=== PATIENT | male | born 1960 | race Caucasian/White ===

== ENCOUNTER 2023-07-09 09:30 | Observation (INO) ==
--- NOTE | 2023-06-18 10:51 | PAT Medication Instructions ---
Medication Instructions Date of Service June 18, 2023 Home Medications amlodipine 10 mg tablet 10 mg PO HS escitalopram oxalate 20 mg tablet (Lexapro) 20 mg PO HS fenofibrate nanocrystallized 48 mg tablet 48 mg PO HS irbesartan 300 mg tablet 300 mg PO HS isosorbide dinitrate 30 mg tablet 30 mg PO HS metoprolol succinate 100 mg tablet,extended release 24 hr 100 mg PO HS oxycodone-acetaminophen 5 mg-325 mg tablet 1 tab PO Q6H PRN Pain pantoprazole 40 mg tablet,delayed release 40 mg PO HS rivaroxaban 20 mg tablet (Xarelto) 20 mg PO HS ASK your prescriber and surgeon rivaroxaban 20 mg tablet (Xarelto) 20 mg PO HS STOP taking 48 hours before surgery fenofibrate nanocrystallized 48 mg tablet 48 mg PO HS Take morning of surgery With a small sip of water, OTHERWISE NOTHING TO EAT OR DRINK AFTER MIDNIGHT: oxycodone-acetaminophen 5 mg-325 mg tablet 1 tab PO Q6H PRN Pain (if needed) Take evening before surgery amlodipine 10 mg tablet 10 mg PO HS escitalopram oxalate 20 mg tablet (Lexapro) 20 mg PO HS irbesartan 300 mg tablet 300 mg PO HS isosorbide dinitrate 30 mg tablet 30 mg PO HS metoprolol succinate 100 mg tablet,extended release 24 hr 100 mg PO HS oxycodone-acetaminophen 5 mg-325 mg tablet 1 tab PO Q6H PRN Pain (if needed) pantoprazole 40 mg tablet,delayed release 40 mg PO HS Other Notes If you have any questions please call us at [phone] or [phone] or [phone] or [phone]
--- NOTE | 2023-06-23 14:17 | Anesthesiology Consultation ---
Date of Service June 23, 2023 Assessment & Plan (1) Encounter for pre-operative examination: - Infectious disease screening: Per assessment on 06/23: No known infectious disease contacts or current infectious disease symptoms. No noted Covid positive test result in past 90 days. - Cardiology visit (10/17/22): "Previous PCI in 2012. Treadmill stress test in 2019normal. No additional testing is necessary at this time. Preserved LV function by echocardiogram. Continue aggressive risk factor modification.. Atrial fibrillation.. Status post cryoablation. [id number] Score is 2, continue Xarelto for anticoagulation. Sinus rhythm based on exam. No recent palpitations.. Manual recheck of his blood pressure revealed a BP of 150/100. Discontinue lisinopril. Start irbesartan 300 mg daily." BP f/u recommended. Per PCP visit 03/2023, BP 108/76* - Xarelto instructions: per surgeon/prescriber - Elevated PTT: PTT 36.5 on preop labs. Patient taking Xarelto (he has not received perioperative instructions yet from surgeon/prescriber- he will followup). At anesthesiologist discretion DOS if recheck PTT level needed from their perspective. Chart Review Chart Review: Acceptable Risk for Surgery and Patient seen in Pre Admission Testing Teaching & Discussion Pre-Anesthesia Teaching/Discussion Notes: Instructed NPO after midnight before surgery,except medications with 15 cc of water. Medication instructions provided according to the PAT guidelines. History Surgery Operation Date: 07/09/23 11:35 Proposed Procedures p L2-L3 Microdiscectomy - Zheng Benjamin MD Height/Weight Height: 5 ft 11 in Weight: 101.4 kg Allergies Allergy/AdvReac Type Severity Reaction Status Date / Time No Known Allergies Allergy Verified 06/16/23 11:19 Medications Home Medications Medication Instructions Recorded Confirmed Last Taken amlodipine 10 mg tablet 10 mg PO HS 06/16/23 06/16/23 Unknown escitalopram oxalate 20 mg tablet 20 mg PO HS 06/16/23 06/16/23 Unknown (Lexapro) fenofibrate nanocrystallized 48 mg 48 mg PO HS 06/16/23 06/16/23 Unknown tablet irbesartan 300 mg tablet 300 mg PO HS 06/16/23 06/16/23 Unknown isosorbide dinitrate 30 mg tablet 30 mg PO HS 06/16/23 06/16/23 Unknown metoprolol succinate 100 mg 100 mg PO HS 06/16/23 06/16/23 Unknown tablet,extended release 24 hr oxycodone-acetaminophen 5 mg-325 1 tab PO Q6H PRN Pain 06/16/23 06/16/23 Unknown mg tablet pantoprazole 40 mg tablet,delayed 40 mg PO HS 06/16/23 06/16/23 Unknown release rivaroxaban 20 mg tablet (Xarelto) 20 mg PO HS 06/16/23 06/16/23 Unknown Past Medical History Medical History Anxiety Arthritis Atrial fibrillation Hx ablation, approximately 2019 > no issues since Follows with Martin Archuleta [facility] ([place], [place]) CAD (coronary artery disease) Stent x1 (2012) GERD (gastroesophageal reflux disease) History of shingles 6+ months ago, "all resolved" Hyperlipidemia Hypertension Lung nodule Under surveillance with annual imaging Prediabetes Diet controlled Sleep apnea no device Spinal stenosis Exercise / Class Metabolic Activity II 4-5 Yardwork/Stairs/Walk up hill Past Surgical History Surgical History History of cardiac cath Approximately 2012- stent x1 History of cardiac radiofrequency ablation 2019 ([facility]) History of cardioversion x several prior to ablation History of cholecystectomy History of tooth extraction History of transesophageal echocardiography ([facility]) Remote Past Anesthesia History No Hx of Anesthesia Complications and No Family Hx of Anesthesia Complications History of PONV No Hx of PONV and No Hx of Motion Sickness Social History Smoking Status: Current every day smoker Smoking cigarettes per day: 1/2 PPD Do You Dip or Chew Tobacco: No (Remote hx, none at present) Hx Alcohol Use: Yes alcohol intake frequency: holidays/special occasions only Hx Substance Use: No substance use type: does not use Review of Systems Patient denies chest pain, shortness of breath, dyspnea on exertion, fever, chills, cough, wheezing, palpitations. Physical Exam Vital Signs VITALS BP 124/77 P 61 TEMP 98.1 SP02 96%RA RESP 16 PHYSICAL Full cervical extension range of motion. Full TMJ range of motion. TMD 3 finger breaths Mallampati Score 3 Dentition: several missing sides/molars Lungs: clear throughout to auscultation Cardiac: regular rate and rhythm, no murmurs noted Spine: normal Carotid arteries: negative bruit Extremities: no LE edema Lab Results Anesthesia Preop Results Results Anesthesia Widget: WBC 8.18 K/ul (4.8-10.8) 06/23/23 Hgb 14.9 g/dl (14.0-18.0) 06/23/23 Hct 41.4 % (42.0-52.0) L 06/23/23 Plt 281 K/uL (130-400) 06/23/23 Na 138 mmol/L (136-145) 06/23/23 K 4.0 mmol/L (3.5-5.1) 06/23/23 Cl 105 mmol/L (98-107) 06/23/23 CO2 28 mmol/L (21-32) 06/23/23 BUN 13 mg/dl (6-23) 06/23/23 Creat 1.13 mg/dl (0.6-1.4) 06/23/23 Glucose Level 101 mg/dl (70-99(Fasting)) H 06/23/23 PT 11.4 Seconds (9.0-12.0) 06/23/23 PTT 36.5 Seconds (21.0-31.0) H 06/23/23 INR 1.0 (0.9-1.1) 06/23/23 Blood Type A Positive 06/23/23 Antibody Screen NEGATIVE 06/23/23 Testing Electrocardiogram Date: 06/23/23 SB at 53bpm. "Otherwise normal ECG" Chest X-Ray Date: 06/23/23 FINDINGS: Cardiomediastinal and hilar silhouettes are within normal limits. No pneumothorax, pleural effusion, airspace consolidation or pulmonary edema. Mild linear subsegmental bibasilar atelectasis versus scarring. IMPRESSION: No acute process. Echocardiogram Date: 10/08/19 EF 55-60%. LV wall motion is normal. No thrombus. No significant valvular disease. Stress Test Date: 10/14/19 "Normal stress test" Normal ETT. Poor physical fitness. 7.00 METS. 93% MPHR.
[~2023-07-09 09:30] MED LIST: LR 15ML/HR IV SCH; LR 60ML/HR IV SCH; REMIFENTANIL HCL 1 MG VIAL IV ONE; ceFAZolin 2000MG 2,000 MG/15 ML SYR IV SCH
[2023-07-09] MEDS ORDERED: DEXAMETHASONE SOD INJ 4 MG/ML VIAL ONE (10:15)
[2023-07-09] MEDS ORDERED: ROCURONIUM BROMIDE 10 MG/ML 5 ML VIAL IV ONE ×3 (10:15→11:45)
[2023-07-09] MEDS ORDERED: PROPOFOL IV EMULSION 10 MG/ML 20 ML VIAL IV ONE (10:15)
[2023-07-09] MEDS ORDERED: LIDOCAINE 2% 2 ML VIAL/AMP(20MG/ML) INFIL ONE (10:15)
[2023-07-09] MEDS ORDERED: fentaNYL citrate PF 100 MCG/2 ML VIAL ONE ×2 (10:15→12:13)
[2023-07-09] MEDS ORDERED: MIDAZOLAM HCL 1 MG/ML 2ML VIAL ONE (10:15)
[2023-07-09] MEDS ORDERED: ONDANSETRON INJ 2 MG/ML 2 ML VIAL ONE (10:15)
--- NOTE | 2023-07-09 10:28 | History & Physical Bridge Note ---
Date of Service July 09, 2023 History & Physical Bridge Note I have examined the patient, reviewed the History & Physical and in the interval since the performance of the History & Physical I have noted the following changes of clinical significance: no changes noted
[2023-07-09] MEDS ORDERED: ePHEDrine sulfate 50 MG/ML AMP IV PRN ×2 (10:38→14:55)
[2023-07-09] MEDS ORDERED: FLUMAZENIL 0.1 MG/1 ML 10 ML VIAL IV PRN ×2 (10:38→14:55)
[2023-07-09] MEDS ORDERED: GELATIN SPONGE 12-7MM ONE (10:38)
[2023-07-09] MEDS ORDERED: VANCOMYCIN HCL 1000MG/20ML VIAL ONE (10:38)
[2023-07-09] MEDS ORDERED: ATROPINE SULFATE 0.1 MG/ML 10ML SYR IV PRN ×2 (10:38→14:55)
[2023-07-09] MEDS ORDERED: THROMBIN 5000 UNITS KIT ONE (10:38)
[2023-07-09] MEDS ORDERED: methylPREDNISolone acetate 40 MG/ML VIAL ONE (10:38)
[2023-07-09] MEDS ORDERED: BUPIVACAINE/EPINEPHRINE 0.5% MPF 1:200,000 30 ML VIAL ONE (10:38)
[2023-07-09] MEDS ORDERED: fentaNYL citrate PF 100 MCG/2 ML VIAL IV PRN ×2 (10:38→14:55)
[2023-07-09] MEDS ORDERED: NALOXONE HCL 0.4 MG/1 ML VIAL/CARP IV PRN ×3 (10:38→14:55)
[2023-07-09] MEDS ORDERED: ONDANSETRON INJ 2 MG/ML 2 ML VIAL IV PRN ×3 (10:38→14:55)
[2023-07-09] MEDS ORDERED: LABETALOL HCL IV 5 MG/ML 20ML IV PRN ×2 (10:38→14:55)
[2023-07-09] MEDS ORDERED: HYDROmorphone INJ 1 MG/ML SYRINGE IV PRN ×2 (10:38→14:55)
[2023-07-09] MEDS ORDERED: PROMETHAZINE HCL 12.5 MG in SODIUM CHLORIDE 0.9% 50 ML IV PRN ×3 (10:38→14:55)
[2023-07-09] MEDS ORDERED: FLOSEAL HEMOSTATIC MATRIX 10ML TOP ONE (12:55)
[2023-07-09] MEDS ORDERED: SUGAMMADEX SODIUM 200 MG/2 ML VIAL IV ONE (13:32)
[2023-07-09] MEDS ORDERED: PHENYLEPHRINE HCL 10 MG/ML VIAL ONE (13:54)
[2023-07-09] MEDS ORDERED: ePHEDrine sulfate 50 MG/ML AMP ONE (13:54)
[2023-07-09] MEDS ORDERED: KETOROLAC 30 MG/ML VIAL ONE (14:09)
--- NOTE | 2023-07-09 14:39 | Post Operative Brief Note ---
PG Immediate Post Op with CF Date of Surgery July 09, 2023 Pre & Post Diagnosis Operation Date: 07/09/23 10:55 Pre-Op Diagnosis: Lumbar Disc Herniation with Radiculopathy Post-Op Diagnosis: Lumbar Disc Herniation with Radiculopathy I identified the patient and participated in the time-out.: Yes Procedure Operation Date: 07/09/23 10:55 Actual Procedures p L3-L4 Microdiscectomy(Not Applicable) - Zheng Benjamin MD Surgeon Zheng Benjamin MD [employer] Estimated Blood Loss 20 Findings Consistent with Post-Op Diagnosis Specimens Specimen Description: No specimen per surgeon. Drains Polk Catheter (polk inserted prior to procedure by Kimberly Stoll. one attempt no difficulty)
--- NOTE | 2023-07-09 14:39 | Fluoroscopy Report ---
FL spine 1V any level CLINICAL HISTORY: L3-L4 MICROchronic low back pain COMPARISON STUDY: None FLUOROSCOPY TIME: 46.6 seconds FLUOROSCOPY IMAGES: 6 EXPOSURE DOSE: 25.86 mGy FINDINGS: Metallic retractors are noted posterior to the L3-L5 levels. Multilevel intervertebral disc space narrowing with spondylotic spurring and facet arthrosis. Note that the images were submitted f ollowing completion of the surgery. IMPRESSION: Fluoroscopic assistance as above. ACT 112: Negative or not required by law. Electronically signed by: Juan Pablo Hunt M.D. 07/09/2023 2:37 PM
[2023-07-09] MEDS ORDERED: diphenhydrAMINE Capsule 25 MG CAP PO PRN (14:44)
[2023-07-09] MEDS ORDERED: DO NOT ADMINISTER PNEUMOCOCCAL VACCINE PRN (14:44)
[2023-07-09] MEDS ORDERED: ACETAMINOPHEN 500 MG TAB PO PRN (14:44)
[2023-07-09] MEDS ORDERED: bisacodyL 10 MG SUPP PR PRN (14:44)
[2023-07-09] MEDS ORDERED: ONDANSETRON 4 MG OD TAB PO PRN (14:44)
[2023-07-09] MEDS ORDERED: SOD PHOSPHATE/SOD BIPHOSPHATE ENEMA 132 ML BTL PR PRN (14:44)
[2023-07-09] MEDS ORDERED: METOCLOPRAMIDE HCL INJ 5 MG/ML 2 ML VIAL IV PRN (14:44)
[2023-07-09] MEDS ORDERED: ALUMINUM/MAGNESIUM SUSP 30 ML UDC PO PRN (14:44)
[2023-07-09] MEDS ORDERED: LORazepam 0.5 MG TAB PO PRN (14:44)
[2023-07-09] MEDS ORDERED: ACETAMINOPHEN 1,000 MG/100 ML VIAL IV PRN (14:44)
[2023-07-09] MEDS ORDERED: HYDROmorphone INJ 0.5 MG/0.5 ML SYR IV PRN (14:44)
[2023-07-09] MEDS ORDERED: hydrOXYzine HCl 25 MG TAB PO PRN (14:44)
[2023-07-09] MEDS ORDERED: oxyCODONE/ACETAMINOPHEN 5mg/325mg TAB PO PRN (14:44)
[2023-07-09] MEDS ORDERED: DO NOT ADMINISTER FLU VACCINE PRN (14:44)
[2023-07-09] MEDS ORDERED: FAMOTIDINE 20 MG TAB PO PRN (14:44)
[2023-07-09] MEDS ORDERED: MAGNESIUM HYDROXIDE SUSP 30 ML UDC PO PRN (14:44)
[2023-07-09] MEDS ORDERED: LORazepam 2 MG/1 ML VIAL IV PRN (14:44)
--- NOTE | 2023-07-09 15:35 | Anesthesiology Progress Note ---
Date of Service July 09, 2023 Anesthesia Post Procedure Vital Signs Vital Signs: Temp Pulse Pulse Resp BP Pulse Ox O2 Del Method 07/09/23 15:30 36.2 C L 60 12 104/66 94 Room Air 07/09/23 15:20 62 10 L 107/66 94 Room Air 07/09/23 15:10 61 15 111/69 94 Room Air 07/09/23 15:00 61 12 116/62 94 Room Air 07/09/23 14:50 63 19 113/66 94 Room Air 07/09/23 14:40 36.2 C L 62 13 129/73 100 Oxymask 07/09/23 09:48 36.7 C 60 18 149/97 H 96 Room Air O2 Flow Rate 07/09/23 15:30 07/09/23 15:20 07/09/23 15:10 07/09/23 15:00 07/09/23 14:50 07/09/23 14:40 4 07/09/23 09:48 Pain Intensity Back: Pain Intensity: 4 Transfer of Care Handoff Completed per policy Notes Mental Status: alert / awake / arousable Patient Amnestic to Procedure: Yes Nausea / Vomiting: adequately controlled Pain: adequately controlled Airway Patency, RR, SpO2: stable & adequate BP & HR: stable & adequate Hydration State: stable & adequate Anesthetic Complications: no major complications apparent
[2023-07-09] MEDS: LACTATED RINGER'S 1,000 ML IV SCH (17:21)
[2023-07-09] MEDS: KETOROLAC 30 MG/ML VIAL IV SCH (17:21)
--- NOTE | 2023-07-09 17:31 | History & Physical Report ---
Date of Service July 09, 2023 Assessment & Plan (1) Hematuria: Plan: Hematuria No history of BPH or urinary dysfunction. Patient did have bleeding and saturated a blue disposable aurea with blood, 2 clots were passed. Suspect traumatic from Meehan bulb Given continued frankly bloody output will replace 18-gauge Meehan. Irrigate as needed. - Bladder scan qshift and for development of suprapubic pain. If continued bloody output or obstructing, consult urology. No indication for CBI at this time. Xarelto held - No hypotension or presyncope/syncope. HR regular (2) Lumbar disc herniation with radiculopathy: Plan: - S/p microdiscectomy 07/09/2020 Neurovascularly intact on exam Pain control, activity per spine. Reports has some pain at his operative site, otherwise doing well. Pain that led to his surgery was mostly when he was ambulatory so patient is unclear how much improvement he has had postoperatively (3) Atrial fibrillation: Plan: Paroxysmal A-fib Xarelto held since 07/04/2023 Patient is s/p ablation in 2019 with no known recurrence of his A-fib, although his not had a heart monitor/smart watch/mobile telemetry to quantify his subsequent A-fib burden if present. We will continue to hold Xarelto. If hematuria resolves and is doing well may resume this from a surgical standpoint on 07/11/2023 (4) CAD (coronary artery disease): Plan: CAD Continue isosorbide, continue metoprolol succinate 100 mg p.o. at bedtime Irbesartan pending to be resumed 07/10 as noted No chest pain or signs of cardiac ischemia at site of bedside assessment. Euvolemic on assessment (5) GERD (gastroesophageal reflux disease): Plan: Continue Protonix (6) Hypertension: Plan: Resume irbesartan 07/10/2023 if blood pressure normal and creatinine is at baseline Metoprolol, amlodipine as noted (7) Hyperlipidemia: Plan: Hyperlipidemia Fenofibrate held since 07/04/2020, may resume postop Plan DVT prophylaxis: SCDs postoperatively, may resume Xarelto if hematuria has resolved on 07/11/2023 CODE STATUS: Full code Disposition: Medical surgical, no signs of recurrent A-fib on reassessment CODE STATUS: Full Admission and Anticipated Discharge Date Admission Date: July 09, 2023 History of Present Illness Primary Care Provider: Danelle Gleason MD Rosendo is a 63-year-old male with a past medical history of CAD, hypertension, hyperlipidemia, paroxysmal A-fib on anticoagulation, NEL, GERD and lumbar disc herniation with radiculopathy who presented for surgical intervention s/p L3-L4 microdiscectomy on 07/09/2023, uncomplicated with 20 cc of blood loss. Hospitalist service is consulted for medical management of comorbidities. Rosendo is seen at the bedside postoperatively. He reports preop he was having a sharp and shooting pain from his back with exertion, generally was okay at rest. He notes he has some postsurgical soreness at his back at the surgical site which is different from the pain that led to his surgery. His sharp pain that led to his surgery is not currently present, but he reports this was generally with ambulation so he is not sure if it is improved or not. He endorses intact sensation to the lower extremities since his surgery. No fever, chills, sweats. No chest pain or chest pressure. He does not have any abdominal pain or feeling of bladder fullness. Per patient and nursing report large amount of hematuria after catheter removal and soaked 2 pads, currently having small amount of shena sanguinous output. Did pass 2 clots. He is on Xarelto for A- fib prophylaxis, has continued this although had an ablation in the past and has not had known recurrence of A-fib since his ablation. Has never had problems with bleeding in the past. Medical History: Reviewed Medications: Reviewed Surgical History: Reviewed Family history: Reviewed Allergies: Reviewed Social History: Reviewed, half pack per day tobacco use. Patch ordered Code Status: Full code Allergies Allergy/AdvReac Type Severity Reaction Status Date / Time No Known Allergies Allergy Verified 07/09/23 09:43 Home Medications Medication Instructions Recorded Confirmed Type amlodipine 10 mg tablet 10 mg PO HS 06/16/23 07/09/23 History escitalopram oxalate 20 mg tablet 20 mg PO HS 06/16/23 07/09/23 History (Lexapro) fenofibrate nanocrystallized 48 mg 48 mg PO HS 06/16/23 07/09/23 History tablet irbesartan 300 mg tablet 300 mg PO HS 06/16/23 07/09/23 History isosorbide dinitrate 30 mg tablet 30 mg PO HS 06/16/23 07/09/23 History metoprolol succinate 100 mg 100 mg PO HS 06/16/23 07/09/23 History tablet,extended release 24 hr oxycodone-acetaminophen 5 mg-325 1 tab PO Q6H PRN Pain 06/16/23 07/09/23 History mg tablet pantoprazole 40 mg tablet,delayed 40 mg PO HS 06/16/23 07/09/23 History release rivaroxaban 20 mg tablet (Xarelto) 20 mg PO HS 06/16/23 07/09/23 History Past Med/Surg History Medical History (Updated 07/09/23 @ 18:17 by Justin Castro MD) CAD (coronary artery disease) Stent x1 (2012) Lung nodule Under surveillance with annual imaging History of shingles 6+ months ago, "all resolved" Arthritis Spinal stenosis Prediabetes Diet controlled GERD (gastroesophageal reflux disease) Anxiety Atrial fibrillation Hx ablation, approximately 2019 > no issues since Follows with Martin Archuleta CNP ([place], [place]) Hyperlipidemia Hypertension Sleep apnea no device Surgical History History of transesophageal echocardiography ([facility]) Remote History of cardioversion x several prior to ablation History of cholecystectomy History of tooth extraction History of cardiac cath Approximately 2012- stent x1 History of cardiac radiofrequency ablation 2019 ([facility]) Social History Smoking Status: Current every day smoker Tobacco Type: Cigarettes Cigarettes Per Day: 1/2 PPD; Second Hand Exposure: No; Do You Dip or Chew Tobacco: No (Remote hx, none at present); Tobacco Cessation Education Requested by Patient: No Hx Alcohol Use: Yes Hx Substance Use: No Preferred Language: Sami Communication Ability: Effective Production Miner Required: No Beliefs That Will Affect Care: None Current Living Situation: Spouse Other Information That Helps Us Care for You: No Feels Safe at Home: Yes Safety Concerns: Feels Safe At This Time Assistive Devices: Contacts Physical Exam Physical Exam: General: A&Ox3. NAD. Cooperative. HEENT: Atraumatic, normocephalic. PERLAA. Pulm: CTAB A&P. -wheezes, -rales, -rhonchi. Symmetrical chest rise. No increased work of breathing. No respiratory distress. Cardiac: RRR, -mrg. Radial pulses intact and symmetrical. Abdominal: Nontender, nondistended, soft. : Continued small amoutn of shena bloody output from meatus Ext: sensation to soft touch intact in feet bilat. +PT intact bilat Results & Data Results & Data Vital Signs (Past 12 Hours) Vital Signs Temp Pulse Pulse Resp BP Pulse Ox O2 Del Method 07/09/23 17:01 36.7 C 67 16 135/81 93 Room Air 07/09/23 16:30 36.6 C 67 19 122/76 94 Room Air 07/09/23 16:15 62 17 103/67 93 Room Air 07/09/23 16:00 61 16 112/64 94 Room Air 07/09/23 15:45 65 12 106/65 94 Room Air 07/09/23 15:30 36.2 C L 60 12 104/66 94 Room Air 07/09/23 15:20 62 10 L 107/66 94 Room Air 07/09/23 15:10 61 15 111/69 94 Room Air 07/09/23 15:00 61 12 116/62 94 Room Air 07/09/23 14:50 63 19 113/66 94 Room Air 07/09/23 14:40 36.2 C L 62 13 129/73 100 Oxymask 07/09/23 09:48 36.7 C 60 18 149/97 H 96 Room Air O2 Flow Rate 07/09/23 17:01 07/09/23 16:30 07/09/23 16:15 07/09/23 16:00 07/09/23 15:45 07/09/23 15:30 07/09/23 15:20 07/09/23 15:10 07/09/23 15:00 07/09/23 14:50 07/09/23 14:40 4 07/09/23 09:48 Code Status & VTE Plan VTE Prophylaxis Plan VTE Prophylaxis will be ordered: Yes PG Care Time/CCT Total # of Minutes Spent Total Time Spent with Patient: Total time spent is greater than 50% in coordination of care (as documented) at patient's floor/unit and/or counseling patient: Coding Diagnoses Hematuria R31.9 Lumbar disc herniation with radiculopathy M51.16 Atrial fibrillation I48.91 CAD (coronary artery disease) I25.10 GERD (gastroesophageal reflux disease) K21.9 Hypertension I10 Hyperlipidemia E78.5
--- NOTE | 2023-07-09 18:21 | Hospitalist Consultation ---
Date of Consultation July 09, 2023 Assessment & Plan (1) Hematuria: Hematuria No history of BPH or urinary dysfunction. Patient did have bleeding and saturated a blue disposable aurea with blood, 2 clots were passed. Suspect traumatic from Meehan bulb Given continued frankly bloody output will replace 18-gauge Meehan. Irrigate as needed. - Bladder scan qshift and for development of suprapubic pain. If continued bloody output or obstructing, consult urology. No indication for CBI at this time. Xarelto held - No hypotension or presyncope/syncope. HR regular (2) Lumbar disc herniation with radiculopathy: - S/p microdiscectomy 07/09/2020 Neurovascularly intact on exam Pain control, activity per spine. Reports has some pain at his operative site, otherwise doing well. Pain that led to his surgery was mostly when he was ambulatory so patient is unclear how much improvement he has had postoperatively (3) Atrial fibrillation: Paroxysmal A-fib Xarelto held since 07/04/2023 Patient is s/p ablation in 2019 with no known recurrence of his A-fib, although his not had a heart monitor/smart watch/mobile telemetry to quantify his subsequent A-fib burden if present. We will continue to hold Xarelto. If hematuria resolves and is doing well may resume this from a surgical standpoint on 07/11/2023 (4) CAD (coronary artery disease): CAD Continue isosorbide, continue metoprolol succinate 100 mg p.o. at bedtime Irbesartan pending to be resumed 07/10 as noted No chest pain or signs of cardiac ischemia at site of bedside assessment. Euvolemic on assessment (5) GERD (gastroesophageal reflux disease): Continue Protonix (6) Hypertension: Resume irbesartan 07/10/2023 if blood pressure normal and creatinine is at baseline Metoprolol, amlodipine as noted (7) Hyperlipidemia: Hyperlipidemia Fenofibrate held since 07/04/2020, may resume postop Plan DVT prophylaxis: SCDs postoperatively, may resume Xarelto if hematuria has resolved on 07/11/2023 CODE STATUS: Full code Disposition: Medical surgical, no signs of recurrent A-fib on reassessment CODE STATUS: Full History of Present Illness Attending Physician: Zheng Benjamin MD History of Present Illness Rosendo is a 63-year-old male with a past medical history of CAD, hypertension, hyperlipidemia, paroxysmal A-fib on anticoagulation, NEL, GERD and lumbar disc herniation with radiculopathy who presented for surgical intervention s/p L3-L4 microdiscectomy on 07/09/2023, uncomplicated with 20 cc of blood loss. Hospitalist service is consulted for medical management of comorbidities. Rosendo is seen at the bedside postoperatively. He reports preop he was having a sharp and shooting pain from his back with exertion, generally was okay at rest. He notes he has some postsurgical soreness at his back at the surgical site which is different from the pain that led to his surgery. His sharp pain that led to his surgery is not currently present, but he reports this was generally with ambulation so he is not sure if it is improved or not. He endorses intact sensation to the lower extremities since his surgery. No fever, chills, sweats. No chest pain or chest pressure. He does not have any abdominal pain or feeling of bladder fullness. Per patient and nursing report large amount of hematuria after catheter removal and soaked 2 pads, currently having small amount of shena sanguinous output. Did pass 2 clots. He is on Xarelto for A- fib prophylaxis, has continued this although had an ablation in the past and has not had known recurrence of A-fib since his ablation. Has never had problems with bleeding in the past. Medical History: Reviewed Medications: Reviewed Surgical History: Reviewed Family history: Reviewed Allergies: Reviewed Social History: Reviewed, half pack per day tobacco use. Patch ordered Code Status: Full code Allergies Allergy/AdvReac Type Severity Reaction Status Date / Time No Known Allergies Allergy Verified 07/09/23 09:43 Home Medications Medication Instructions Recorded Confirmed Type amlodipine 10 mg tablet 10 mg PO HS 06/16/23 07/09/23 History escitalopram oxalate 20 mg tablet 20 mg PO HS 06/16/23 07/09/23 History (Lexapro) fenofibrate nanocrystallized 48 mg 48 mg PO HS 06/16/23 07/09/23 History tablet irbesartan 300 mg tablet 300 mg PO HS 06/16/23 07/09/23 History isosorbide dinitrate 30 mg tablet 30 mg PO HS 06/16/23 07/09/23 History metoprolol succinate 100 mg 100 mg PO HS 06/16/23 07/09/23 History tablet,extended release 24 hr oxycodone-acetaminophen 5 mg-325 1 tab PO Q6H PRN Pain 06/16/23 07/09/23 History mg tablet pantoprazole 40 mg tablet,delayed 40 mg PO HS 06/16/23 07/09/23 History release rivaroxaban 20 mg tablet (Xarelto) 20 mg PO HS 06/16/23 07/09/23 History Patient History Medical History (Updated 07/09/23 @ 18:17 by Justin Catsro MD) CAD (coronary artery disease) Stent x1 (2012) Lung nodule Under surveillance with annual imaging History of shingles 6+ months ago, "all resolved" Arthritis Spinal stenosis Prediabetes Diet controlled GERD (gastroesophageal reflux disease) Anxiety Atrial fibrillation Hx ablation, approximately 2019 > no issues since Follows with Martin Archuleta CNP ([place], [place]) Hyperlipidemia Hypertension Sleep apnea no device Surgical History History of transesophageal echocardiography (MARY) Remote History of cardioversion x several prior to ablation History of cholecystectomy History of tooth extraction History of cardiac cath Approximately 2012- stent x1 History of cardiac radiofrequency ablation 2019 ([facility]) Social History Smoking Status: Current every day smoker Tobacco Type: Cigarettes Cigarettes Per Day: 1/2 PPD; Second Hand Exposure: No; Do You Dip or Chew Tobacco: No (Remote hx, none at present); Tobacco Cessation Education Requested by Patient: No Hx Alcohol Use: Yes Hx Substance Use: No Preferred Language: Serbian Communication Ability: Effective [employer] Supervisor Required: No Beliefs That Will Affect Care: None Current Living Situation: Spouse Other Information That Helps Us Care for You: No Feels Safe at Home: Yes Safety Concerns: Feels Safe At This Time Assistive Devices: Contacts Physical Exam Physical Exam: General: A&Ox3. NAD. Cooperative. HEENT: Atraumatic, normocephalic. PERLAA. Pulm: CTAB A&P. -wheezes, -rales, -rhonchi. Symmetrical chest rise. No increased work of breathing. No respiratory distress. Cardiac: RRR, -mrg. Radial pulses intact and symmetrical. Abdominal: Nontender, nondistended, soft. : Continued small amoutn of shena bloody output from meatus Ext: sensation to soft touch intact in feet bilat. +PT intact bilat Results & Data Results & Data Vital Signs (Past 12 Hours) Vital Signs Temp Pulse Pulse Resp BP Pulse Ox O2 Del Method 07/09/23 17:56 Room Air 07/09/23 17:14 36.5 C 69 19 143/80 H 94 Room Air 07/09/23 17:01 36.7 C 67 16 135/81 93 Room Air 07/09/23 16:30 36.6 C 67 19 122/76 94 Room Air 07/09/23 16:15 62 17 103/67 93 Room Air 07/09/23 16:00 61 16 112/64 94 Room Air 07/09/23 15:45 65 12 106/65 94 Room Air 07/09/23 15:30 36.2 C L 60 12 104/66 94 Room Air 07/09/23 15:20 62 10 L 107/66 94 Room Air 07/09/23 15:10 61 15 111/69 94 Room Air 07/09/23 15:00 61 12 116/62 94 Room Air 07/09/23 14:50 63 19 113/66 94 Room Air 07/09/23 14:40 36.2 C L 62 13 129/73 100 Oxymask 07/09/23 09:48 36.7 C 60 18 149/97 H 96 Room Air O2 Flow Rate 07/09/23 17:56 07/09/23 17:14 07/09/23 17:01 07/09/23 16:30 07/09/23 16:15 07/09/23 16:00 07/09/23 15:45 07/09/23 15:30 07/09/23 15:20 07/09/23 15:10 07/09/23 15:00 07/09/23 14:50 07/09/23 14:40 4 07/09/23 09:48 PG Care Time/CCT Total # of Minutes Spent Total Time Spent with Patient: Total time spent is greater than 50% in coordination of care (as documented) at patient's floor/unit and/or counseling patient: Coding Level of Care Code 16136 IN/OBS CONSULT LVL 4,60M Diagnoses Hematuria R31.9 Lumbar disc herniation with radiculopathy M51.16 Atrial fibrillation I48.91 CAD (coronary artery disease) I25.10 GERD (gastroesophageal reflux disease) K21.9 Hypertension I10 Hyperlipidemia E78.5
[2023-07-09] MEDS ORDERED: LACTATED RINGER'S 1,000 ML IV ONE (18:35)
[2023-07-09] MEDS: ceFAZolin 2000MG 2,000 MG/15 ML SYR IV SCH (19:37)
[2023-07-09] MEDS: NICOTINE 7 MG/24 HR TDSY TD SCH (19:44)
[2023-07-09] MEDS ORDERED: LOSARTAN POTASSIUM 50 MG TAB PO SCH (21:00)
[2023-07-09] MEDS ORDERED: ISOSORBIDE DINITRATE 10 MG TAB PO SCH (21:00)
[2023-07-09] MEDS ORDERED: amLODIPine BESYLATE 5 MG TAB PO SCH (21:00)
[2023-07-09] MEDS ORDERED: PANTOprazole 40 MG TAB PO SCH (21:00)
[2023-07-09] MEDS ORDERED: METOPROLOL SUCC 50MG EXT REL TAB PO SCH (21:00)
[2023-07-09] MEDS ORDERED: DOCUSATE SODIUM/SENNA 50/8.6MG TAB PO SCH (21:00)
[2023-07-09] MEDS ORDERED: ESCITALOPRAM OXALATE 20 MG TAB PO SCH (21:00)
[2023-07-10] MEDS: KETOROLAC 30 MG/ML VIAL IV SCH ×3 (00:09→11:52)
[2023-07-10] MEDS: ceFAZolin 2000MG 2,000 MG/15 ML SYR IV SCH (03:15)
[2023-07-10] MEDS: POLYETHYLENE (MIRALAX) 17 GM PACK PO SCH ×2 (05:48→11:52)
[2023-07-10] MEDS: LACTATED RINGER'S 1,000 ML IV SCH (05:48)
--- NOTE | 2023-07-10 08:00 | Orthopedic Progress Note ---
Date of Service July 10, 2023 Subjective . Patient postoperative day 1 from right L3-4 decompression and discectomy, overall notes improvement of right leg symptoms. Motor intact right lower extremity, potential slight increase in sensation right anterior thigh. Impression/plan: Postop day 1 from right-sided decompression as stated at L3-4, will undergo physical therapy and once cleared can be discharged. Review of Systems All systems reviewed & are unremarkable except as noted in HPI & below. Physical Exam . Results & Data Results & Data Laboratory Results . Diagnostic Findings . PG Care Time/CCT Total # of Minutes Spent Total Time Spent with Patient: Total time spent is greater than 50% in coordination of care (as documented) at patient's floor/unit and/or counseling patient: Coding Level of Care Code 96546 Post Operative Follow-Up
--- NOTE | 2023-07-10 08:04 | Discharge Summary ---
Date of Service July 10, 2023 Principal Diagnosis Same as "Discharge Diagnosis" noted below under Discharge Instructions. Discharge Exam . Discharge Data Consultations 07/09/23 14:49 Consult Hospitalist Routine Procedures Performed Operation Date: 07/09/23 10:55 Actual Procedures p L3-L4 Microdiscectomy(Not Applicable) - Zheng Benjamin MD Ordered Studies 07/09/23 10:55 FL spine 1V any level Routine Hospital Course (1) Lumbar disc herniation with radiculopathy: PG Care Time/CCT Total # of Minutes Spent Total Time Spent with Patient: Total time spent is greater than 50% in coordination of care (as documented) at patient's floor/unit and/or counseling patient: Discharge Plan Discharge Items Patient Disposition: Home - Self-Care Reason For Visit: SURGERY Discharge Diagnosis: Lumbar disc herniation with radiculopathy Activity: As commented below Activity Comment: No heavy bending lifting twisting Lifting: No more than 10 pounds Bathing: May shower/bathe in 3 days Exercise/Sports: Wait until after follow-up appointment Driving/Machine Use: Resume 3 days after discharge Non-emergency contact: Surgeon Call non-emergency contact if: your symptoms worsen Follow-up/Referrals: Danelle Gleason MD [Primary Care Provider] - Diet: Regular Addtl Attending Provider Instructions: Follow-up in 2 weeks, may wash incisional area when taking showers in 2 days Pending Studies at Discharge: No Stand-Alone Forms: My [facility] [employer], Smoking Cessation Medications and DC Order Prescriptions: Continued metoprolol succinate 100 mg Tablet Extended Release 24 Hr 100 mg PO HS isosorbide dinitrate 30 mg Tablet 30 mg PO HS Rx Instructions: allow nitrate-free interval of 12-14 hrs per 24-hr period amlodipine 10 mg Tablet 10 mg PO HS pantoprazole 40 mg Tablet,Delayed Release (Dr/Ec) 40 mg PO HS irbesartan 300 mg Tablet 300 mg PO HS escitalopram oxalate [Lexapro] 20 mg Tablet 20 mg PO HS fenofibrate nanocrystallized 48 mg Tablet 48 mg PO HS Xarelto 20 mg Tablet 20 mg PO HS Rx Instructions: must administer with evening meal oxycodone-acetaminophen 5-325 mg Tablet 1 tab PO Q6H PRN (Reason: Pain) Discharge Orders: Discharge Order (Routine); Ordered 07/10/23 Ordered By: Zheng Benjamin Admission Data Admit Date/Time: 07/09/23 15:06 Attending Provider: Zheng Benjamin Admit Provider: Zheng Benjamin Primary Care Provider: Danelle Gleason Other Providers: Guilherme Allen; Rosario Solis; Lincoln Manzanares; David Morrison; Kye Torres; Sven Newberry; Raman Villalta; Phyllis Skinner; Henny Ortega; Albert Arias; Kelly Steele; Christopher Zamudio; Caprice Watkins; Jam Lee; Ruben Chaparro; Rosario Watson; Elisa Salmeron; Lang Blum; Lincoln Inman; Ventura Schwartz; Jennifer Nicolas; Sherine Alves; Maciej León; Francia Queen; Yves Ochoa; Justin Castro; Pamela Liu; Otis Hines; Jenni Courtney; Annelise Haney; Harman Oreilly; David Jaramillo; Kye Christy
[2023-07-10] MEDS: NICOTINE 7 MG/24 HR TDSY TD SCH (08:05)
--- NOTE | 2023-07-10 10:08 | Operative Report ---
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 L3-4 right lumbar decompression (63323) 2. Utilization of operative microscope (88915) Patient was taken the operating room and after adequate anesthesia was carefully positioned prone on the Antoine frame, preprepped was performed in the lumbar region. Fluoroscopy was brought in, I then marked for the area of the incision for the L3-4 level followed by prepping and draping. Began the procedure with a midline incision carried out over the appropriate region this is a carried down through the subcutaneous tissues and down onto the interlaminar region on the right side at L3-4. I continued this exposure for the bony surfaces from L4 along the superior aspect of L3 on the right side and out to the facets. Once completed and confirmed fluoroscopically for the level of the procedure, I brought in the operative microscope. On the right side I then performed a right-sided hemilaminectomy, first starting along the inferior edge of L3 and then migrating superiorly, to a limited degree along the facet on the right side and then continuing in the cephalad direction. With this is able to decompress the exiting L4 nerve root and in a continued cephalad as stated then mobilizing the dural contents. In the region of the L3 pedicle on the right side I was able to locate a disc fragment, this was then incised and then removed using a combination of nerve hooks and pituitaries. There were several large fragments taken from the more superior location and then also working in the foraminal region additional pieces were removed, I continued this process till all disc fragments appear to be removed from the area as far as could be safely palpated and decompressing the exiting L3 nerve root. Once I confirmed there was no additional fragments could be removed, I irrigated the operative site, local was injected, vancomycin powder was placed in the operative site. I also had a small piece of Gelfoam which I soaked with some Depo-Medrol and then placed along the nerve roots. The operative site was then closed with layers of 0 Vicryl sutures followed by 2-0 Vicryl sutures and álvaro for the skin. The patient tolerated the procedure well, and was taken recovery room in satisfactory condition. I attest to the content of the Intraoperative Record and any orders documented therein. Any exceptions are noted below.
[2023-07-10] MEDS ORDERED: FENOFIBRATE NANOCRYSTALLIZED 48 MG TABLET PO SCH (21:00)
== END 2023-07-10 13:23 | disposition home or self-care (01) ==
LOC: ASU 09:30 → 3N 09:30 → SUATTDRO 15:06